=== PATIENT | female | born 1995 | race Caucasian/White ===

== ENCOUNTER 2022-02-03 18:16 | Emergency (ER) | payer BC ==
[~2022-02-03] VITALS: Ht 165.1 cm; Wt 93.9 kg
[2022-02-03 18:24] VITALS: BP 124/54
--- NOTE | 2022-02-03 18:44 | NUR ---
Pt ambulated to bed 9.
--- NOTE | 2022-02-03 18:50 | NUR ---
blood specimen [employer] Director at bedside to hakan
--- NOTE | 2022-02-03 18:52 | NUR ---
Tech at bedside to complete EKG
--- NOTE | 2022-02-03 18:57 | NUR ---
Radiology at bedside to take XRAY
[2022-02-03] MEDS ORDERED: predniSONE 20 MG TAB PO ONE (19:20)
[2022-02-03] MEDS ORDERED: ALBUTEROL SULFATE/IPRATROPIU 3 ML SOL IH ONE (19:20)
--- NOTE | 2022-02-03 19:21 | NUR ---
Pt report given to Sandra RN. Transfer of care at this time.
[2022-02-03] MEDS ORDERED: LEVA15HF2 IH (19:32)
[2022-02-03] MEDS ORDERED: PRED20TA5 PO (19:32)
[2022-02-03] MEDS ORDERED: [UNRECOGNIZED DRUG - CODE] PO (19:32)
[2022-02-03] MEDS ORDERED: PROM118S5 PO (19:32)
--- NOTE | 2022-02-03 19:35 | NUR ---
RT AT BEDSIDE FOR BREATHING TX
--- NOTE | 2022-02-03 20:06 | NUR ---
Patient discharged with Vital signs WNL. Written and verbal after care instructions given and explained about acute bronchitis. Patient alert, oriented and verbalized understanding of instructions. Ambulatory with steady gait. All questions addressed prior to discharge. ID band removed. Patient advised to follow up with PMD. Rx of levalbuterol tartrate hfa, prednisone, promethazine-Dm syrup, and long acting nasal decongestant given. Patient educated on indication of medication including possible reaction and side effects. Opportunity to ask questions provided and answered.
[2022-02-03 20:10] VITALS: BP 103/64
== END 2022-02-03 20:06 | disposition home or self-care (01) ==
LOC: MED 18:16
DX: J20.9 Acute bronchitis, unspecified (principal); I51.7 Cardiomegaly; J45.909 Unspecified asthma, uncomplicated; Z79.899 Other long term (current) drug therapy; Z88.0 Allergy status to penicillin; Z88.1 Allergy status to other antibiotic agents
CPT/HCPCS: 71045; 81025; 93005; 94640; 99283; J7512; Q0092